=== PATIENT | female | born 1985 | race Two or more races ===

== ENCOUNTER 2024-05-08 13:02 | Emergency (ER) | payer MEDICAID, OTHER ==
[~2024-05-08] VITALS: Ht 154.9 cm; Wt 77.0 kg
[2024-05-08 14:53] VITALS: BP 123/81; PULSE 110; RESP 19; TEMP 98; O2SAT 97
[2024-05-08 15:04] LABS: Urine Bacteria FEW /hpf (None Seen); Urine Blood 1+ /uL (Negative); Urine Clarity Clear (Clear); Urine Color Colorless (Yellow); Urine Protein, UAD Negative (Negative); Urine Specific Gravity 1.005 (1.001-1.035); Urine Urobilinogen Normal (Negative); Urine WBC 15 /hpf (0 - 5); Urine pH 5.5 (5.0-9.0)
[2024-05-08] MEDS ORDERED: BACDST PO (15:07)
[2024-05-08] MEDS ORDERED: PHEN-922 PO (15:07)
[2024-05-08] MEDS: PHENAZOPYRIDINE HCL 100 MG TAB PO ONE (15:09)
[2024-05-08] MEDS: cefTRIAXone SOD 1,000 MG VL IM ONE (15:09)
--- NOTE | 2024-05-08 15:15 | ED.PDOC ---
General HPI Comments A 38 YEAR OLD FEMALE PRESENTS TO THE ED WITH COMPLAINT OF UTI SYMPTOMS. PATIENT STATES HE HAS BEEN EXPERIENCING PAINFUL URINATION WITH A BURNING SENSATION AND BODY ACHES FOR THE PAST 2 DAYS. PATIENT DENIES HEMATURIA, FLANK PAIN, FEVER, CHILLS, SHORTNESS OF BREATH, CHEST PAIN, ABDOMINAL PAIN, NAUSEA, VOMITING, HEADACHE, OR OTHER COMPLAINTS. NO OTHER SYMPTOMS OR MODIFYING FACTORS AT THIS TIME. PATIENT IS ALERT, ORIENTED X 4, AND HAS STEADY GAIT. Chief Complaint: Urinary Time Seen by MD: 13:08 Primary Care Provider: CARLTON HARRINGTON Reviewed notes: Nurses Notes, Medications, Allergies Allergies: Coded Allergies: NO KNOWN ALLERGIES (Unverified , 05/08/24) Home Meds Active Scripts Phenazopyridine HCl (Phenazopyridine Hydrochlo) 200 Mg Tab, 200 MG PO TID, #6 TAB Prov:NADIA NICK 05/08/24 Sulfamethoxazole W/Trimethopri (Bactrim Ds Tablet) 1 Tab Tb, 1 TAB PO BID for 7 Days, #14 TAB Prov:NADIA NICK 05/08/24 Information Source: Patient Mode of Arrival: Ambulatory Severity: Moderate Inability to void: None Timing: Days Duration: Since onset, Days Prehospital treatment: None Onset: Spontaneous Symptoms: Dysuria History of: UTI Location: None Modifying factors: None associated signs and symptoms: Dysuria, Frequency, Urgency Past Medical History PAST MEDICAL HISTORY: Denies Surgical History: Denies all surgeries PANAMA HAT BLOCKER History: No Pertinent PANAMA HAT BLOCKER History Family History Family History: Reviewed,noncontributory to illness Social History Smoker: Non-Smoker Alcohol: Denies ETOH Use Drugs: Denies Drug Use Lives In: Home Constitutional: denies: chills, diaphoresis, fatigue, fever, malaise, sweats, weakness, others EENTM: denies: blurred vision, double vision, ear bleeding, ear discharge, ear drainage, ear pain, ear ringing, eye pain, eye redness, hearing loss, mouth pain, mouth swelling, nasal discharge, nose bleeding, nose congestion, nose pain, photophobia, tearing, throat pain, throat swelling, voice changes, others Respiratory: denies: cough, hemoptysis, orthopnea, SOB at rest, shortness of breath, SOB with excertion, stridor, wheezing, others Cardiovascular: denies: chest pain, dizzy spells, diaphoresis, Dyspnea on exertion, edema, irregular heart beat, left arm pain, lightheadedness, palpitations, PND, syncope, others Gastrointestinal: denies: abdomen distended, abdominal pain, blood streaked bowels, constipated, diarrhea, dysphagia, difficulty swallowing, hematemesis, melena, nausea, poor appetite, poor fluid intake, rectal bleeding, rectal pain, vomiting, others Genitourinary: reports: burning, dysuria, frequency; denies: abnormal vagina bleeding, dyspareunia, flank pain, hematuria, incontinence, pain, , vagina discharge, urgency, others Neurological: denies: dizziness, fainting, headache, left sided numbness, left sided weakness, numbness, paresthesia, pre-existing deficit, right sided numbness, right sided weakness, seizure, speech problems, tingling, tremors, weakness, others Musculoskeletal: denies: back pain, gout, joint pain, joint swelling, muscle pain, muscle stiffness, neck pain, others Integumetry: denies: bruises, change in color, change in hair/nails, dryness, laceration, lesions, lumps, rash, wounds, others Allergic/Immunocompromised: denies: Difficulty Healing, Frequent Infections, Hives, Itching, others Hematologic/Lymphatic: denies: anemia, blood clots, easy bleeding, easy bruising, swollen glands, others Endocrine: denies: excessive hunger, excessive sweating, excessive thirst, excessive urination, flushing, intolerance to cold, intolerance to heat, unexplained weight gain, unexplained weight loss, others Psychiatric: denies: anxiety, bipolar disorder, depression, hopeless, panic disorder, schizophrenia, sleepless, suicidal, others All Other Systems: Reviewed and Negative Physical Exam General Appearance: No Apparent Distress, Normal HEENT: Normal ENT Inspection, PERRL/EOMI, Pharynx Normal, TMs Normal Neck: Full Range of Motion, Non-Tender, Normal, Normal Inspection Respiratory: Chest Non-Tender, Lungs Clear, No Accessory Muscle Use, No Respiratory Distress, Normal Breath Sounds Cardiovascular: No Edema, No JVD, No Murmur, No Gallop, Normal Peripheral Pulses, Regular Rate/Rhythm Breast Exam: Deferred Gastrointestinal: No Organomegaly, Non Tender, No Pulsatile Mass, Normal Bowel Sounds, Soft, Suprapubic (PRESSURE. ) Genitalia: Deferred Pelvic: Normal External Exam, Tender Uterus Rectal: Deferred Extremities: No calf tenderness, Normal capillary refill, Normal inspection, Normal range of motion, Non-tender, No pedal edema Musculoskeletal : Apperance: Normal Neurologic: Alert, community advocate II-XII nml as Tested, No Motor Deficits, Normal Affect, Normal Mood, No Sensory Deficits Cerebellar Function: Normal Reflexes: Normal Skin: Dry, Normal Color, Warm Peripheral Pulses: 2+ carotid (R), 2+ carotid (L) Lymphatic: No Adenopathy Was a procedure done? Was a procedure done?: No Differential Diagnosis Kidney stone (Female): N/A Kidney stone (Male): N/A Penile/Scrotal: N/A Urinary Problem (Male): UTI, N/A Urinary Problem (Female): Pyelonephritis, Urolithiasis, UTI, Vaginitis X-Ray, Labs, Meds, VS Vital Signs Date Time Temp Pulse Resp B/P (MAP) Pulse Ox O2 Delivery O2 Flow Rate FiO2 05/08/24 14:53 98.0 110 19 123/81 (95) 97 98.0 05/08/24 14:53 110 19 97 Room Air 05/08/24 14:11 98.0 110 19 123/81 (95) 97 Lab Test 05/08/24 13:48 Range/Units Urine Color Colorless Yellow Urine Clarity Clear Clear Urine pH 5.5 5.0-9.0 Urine Specific [place] 1.005 1.001-1.035 Urine Protein Negative Negative Urine Ketones Negative Negative Urine Blood 1+ H Negative /uL Urine Nitrite Negative Negative Urine Bilirubin Negative Negative Urine Urobilinogen Normal Negative mg/dL Urine Leukocyte Esterase 2+ Negative /uL Urine RBC 2 0 - 4 /hpf Urine WBC 15 0 - 5 /hpf Urine Squamous Epithelial Cells Few <5 /hpf Urine Bacteria Few H None Seen /hpf Urine Glucose Normal Normal mg/dL Urine Test Negative Negative Current Medications Medications (Trade) Dose Ordered Sig/Brad Route Start Time Stop Time Status Last Admin Phenazopyridine HCl (Pyridium Tablet) 200 mg ONCE ONCE PO 05/08/24 15:15 05/08/24 15:16 DC 05/08/24 15:09 Ceftriaxone Sodium (Rocephin) 1,000 mg ONCE ONCE IM 05/08/24 15:15 05/08/24 15:16 DC 05/08/24 15:09 X-Ray, Labs, Meds, VS Comment EXTERNAL MEDICAL RECORDS REVIEWED: [NONE] INDEPENDENT HISTORIANS: [NONE] SOCIAL DETERMINANTS OF HEALTH: [NONE] LABS ORDERED: UA REVIEWED AND INTERPRETED RESULTS: LEUKO 2+, BLOOD 1+ IMAGING ORDERED: NONE TREATMENTS ORDERED: ROCEPHIN 1G IM, PYRIDIUM 200MG PO PROCEDURES PERFORMED: NONE CRITICAL CARE TIME: NONE I HAVE DISCUSSED THE PATIENT WITH THE ATTENDING PHYSICIAN DR. CARCAMO AND HE AGREES WITH THE PATIENT'S PLAN OF CARE AND DISPOSITION. BASED ON HISTORY OF PRESENT ILLNESS, AND PHYSICAL EXAM, PATIENT WILL BE DISCHARGED HOME. DISCUSSED PLAN FOR DISCHARGE HOME WITH RX [SEPTRA DS AND PYRIDIUM]. MEDICATION WARNINGS GIVEN. SHARED DECISION MAKING: PATIENT INSTRUCTED TO FOLLOW UP WITH PRIMARY CARE PROVIDER IN 1-2 DAYS FOR RE-EVALUATION OF SYMPTOMS. PATIENT VERBALIZES UNDERSTANDING TO RETURN TO ED FOR NEW OR WORSENING SYMPTOMS OR IF FOLLOW UP WITH PCP CANNOT BE OBTAINED. PATIENT FEELS COMFORTABLE GOING HOME AT THIS TIME. ALL QUESTIONS ADDRESSED AT TIME OF DISCHARGE. Time of 1ST Reevaluation: 15:24 Reevaluation 1ST: Improved Patient Education/Counseling: Diagnosis, Treatment, Need For Follow Up Family Education/Counseling: Diagnosis, Treatment, Need For Follow Up Medical Screening: No EMC Exist At This Time Departure 1 Departure Time of Disposition: 15:40 Impression: Primary Impression: Acute UTI (urinary tract infection) Disposition: 01 HOME / SELF CARE / HOMELESS Condition: Stable Additional Instructions: FOLLOW-UP WITH PCP IN 1 TO 2 DAYS. TAKE MEDICATIONS PRESCRIBED. RETURN TO ED FOR ANY NEW OR WORSENING SYMPTOMS. e-Prescriptions Phenazopyridine HCl (Phenazopyridine Hydrochlo) 200 Mg Tab 200 MG PO TID, #6 TAB Prov: NADIA NICK 05/08/24 Sulfamethoxazole W/Trimethopri (Bactrim Ds Tablet) 1 Tab Tb 1 TAB PO BID for 7 Days, #14 TAB Prov: NADIA NICK 05/08/24 Discharged With: Self Critical Care Note Critical Care Time?: No Stability Stability form required: No I personally scribed for NADIA NICK ([email or web address]) on 05/08/24 at 15:15. Electronically submitted by Cole Jessica ([email or web address]). NADIA NICK May 08, 2024 15:15
== END 2024-05-08 15:23 | disposition home or self-care (01) ==
LOC: ER 13:02 → EDBD 13:02 → ER 15:23
DX: N39.0 Urinary tract infection, site not specified (principal); Z32.02 Encounter for pregnancy test, result negative
CPT/HCPCS: 81001; 81025; 96372; 99283; J0696

== ENCOUNTER 2024-07-01 17:21 | Emergency (ER) | payer MEDICAID ==
[~2024-07-01] VITALS: Ht 154.9 cm; Wt 75.2 kg
[~2024-07-01 17:21] MED LIST: BACDST PO; PHEN-922 PO
[2024-07-01 17:45] VITALS: TEMP 98.2
[2024-07-01 17:46] VITALS: BP 122/78; PULSE 102; RESP 16; O2SAT 97
[2024-07-01] MEDS ORDERED: ACET500T58 PO (18:40)
[2024-07-01] MEDS ORDERED: AMOX875T4 PO (18:40)
[2024-07-01] MEDS ORDERED: CARB6.5S59 OT (18:40)
--- NOTE | 2024-07-01 18:41 | ED.PDOC ---
Eye-HPI HPI Comments 38-YEAR-OLD FEMALE PRESENTS TO ER WITH COMPLAINTS OF SORE THROAT X3 DAYS. PATIENT REPORTS SHE HAS BEEN EXPERIENCING SORE THROAT PAIN AND RIGHT-SIDED EARACHE PAIN X3 DAYS. SHE RATES HER CURRENT PAIN AN 8/10. REPORTS THAT SHE HAS BEEN TAKING IBUPROFEN FOR HER PAIN WITH SLIGHT RELIEF. NOTES SHE WAS ABLE TO SWALLOW LIQUIDS/SOLIDS BUT DOES HAVE PAIN TO THROAT UPON DOING SO. DENIES FEVER, BODY ACHES, CHILLS, SHORTNESS OF BREATH, COUGH OR ANY FURTHER SYMPT OMS/COMPLAINTS Chief Complaint: Sore Throat Time Seen by MD: 18:15 Primary Care Provider: CARLTON HARRINGTON Reviewed Notes: Nurses Notes, Medications, Allergies Allergies: Coded Allergies: NO KNOWN ALLERGIES (Unverified , 05/08/24) Home Meds Active Scripts Carbamide Peroxide (Ear Drops Earwax Removal) 6.5 % Rajani, 5 DROP OT BID for 5 Days, #1 BOTTLE 0 Refills Prov:ROSA M NG 07/01/24 Acetaminophen (Acetaminophen) 500 Mg Tab, 500 MG PO Q4HPRN, #30 TAB 0 Refills Prov:ROSA M NG 07/01/24 Amoxicillin & Pot Clavulanate (Amoxicillin/Potassium Cla) 875 Mg Tab, 1 TAB PO BID for 7 Days, #14 TAB 0 Refills Prov:ROSA M NG 07/01/24 Phenazopyridine HCl (Phenazopyridine Hydrochlo) 200 Mg Tab, 200 MG PO TID, #6 TAB Prov:NADIA NICK 05/08/24 Sulfamethoxazole W/Trimethopri (Bactrim Ds Tablet) 1 Tab Tb, 1 TAB PO BID for 7 Days, #14 TAB Prov:NADIA NICK 05/08/24 Mode of Arrival: Ambulatory Past Medical History PAST MEDICAL HISTORY: Denies Surgical History: Cholecystectomy ASSISTANT STATISTICIAN History: No Pertinent ASSISTANT STATISTICIAN History Family History Family History: Unknown Social History Smoker: Non-Smoker Alcohol: Denies ETOH Use Drugs: Denies Drug Use Lives In: Home Constitutional: denies: chills, diaphoresis, fatigue, fever, malaise, sweats, weakness, others EENTM: reports: others ( STATED IN HPI) Respiratory: denies: cough, hemoptysis, orthopnea, SOB at rest, shortness of breath, SOB with excertion, stridor, wheezing, others Cardiovascular: denies: chest pain, dizzy spells, diaphoresis, Dyspnea on exertion, edema, irregular heart beat, left arm pain, lightheadedness, palpitations, PND, syncope, others Gastrointestinal: denies: abdomen distended, abdominal pain, blood streaked bowels, constipated, diarrhea, dysphagia, difficulty swallowing, hematemesis, melena, nausea, poor appetite, poor fluid intake, rectal bleeding, rectal pain, vomiting, others Genitourinary: denies: abnormal vagina bleeding, burning, dyspareunia, dysuria, flank pain, frequency, hematuria, incontinence, pain, , vagina discharge, urgency, others Neurological: denies: dizziness, fainting, headache, left sided numbness, left sided weakness, numbness, paresthesia, pre-existing deficit, right sided numbness, right sided weakness, seizure, speech problems, tingling, tremors, weakness, others Musculoskeletal: denies: back pain, gout, joint pain, joint swelling, muscle pain, muscle stiffness, neck pain, others Integumetry: denies: bruises, change in color, change in hair/nails, dryness, laceration, lesions, lumps, rash, wounds, others Allergic/Immunocompromised: denies: Difficulty Healing, Frequent Infections, Hives, Itching, others Hematologic/Lymphatic: denies: anemia, blood clots, easy bleeding, easy bruising, swollen glands, others Endocrine: denies: excessive hunger, excessive sweating, excessive thirst, excessive urination, flushing, intolerance to cold, intolerance to heat, unexplained weight gain, unexplained weight loss, others Psychiatric: denies: anxiety, bipolar disorder, depression, hopeless, panic disorder, schizophrenia, sleepless, suicidal, others Physical Exam General Appearance: No Apparent Distress, Obese HEENT: PERRL/EOMI, Pharyngeal Erythema (MILD TONSILLAR SWELLING/ERYTHEMA NOTED BILATERALLY WITHOUT EXUDATES. UVULA-NORMAL), Other (CERUMEN IMPACTION NOTED TO RIGHT MIDDLE EAR CANAL, UNABLE TO VISUALIZE RIGHT TM DUE TO CERUMEN IMPACTION, NO VISIBLE ERYTHEMA/EAR DRAINAGE/SKIN CHANGES APPRECIATED. EAR EXAM ON LEFT- UNREMARKABLE) Neck: Full Range of Motion, Other (BILATERAL CERVICAL LYMPHADENOPATHY) Respiratory: Chest Non-Tender, Lungs Clear, No Accessory Muscle Use, No Resp iratory Distress, Normal Breath Sounds Cardiovascular: No Murmur, No Gallop, Regular Rate/Rhythm Breast Exam: Deferred Gastrointestinal: NOT DONE Genitalia: Deferred Pelvic: Deferred Rectal: Deferred Extremities: Normal capillary refill, Normal range of motion Neurologic: Alert, yoker II-XII nml as Tested, No Motor Deficits, Normal Affect, Normal Mood, No Sensory Deficits Cerebellar Function: Normal Reflexes: Normal Skin: Dry, Normal Color, Warm Peripheral Pulses: 2+ carotid (R), 2+ carotid (L), 2+ Radial (R), 2+ Radial (L), 2+ Brachial (R), 2+ Brachial (L) Lymphatic: Other (BILATERAL CERVICAL LYMPHADENOPATHY) Was a procedure done? Was a procedure done?: No Sedation Sedation?: No EENT DIFF Eye: N/A Sore Throat: Epiglottitis, Mononeucleosis, Peritonsillar Abscess, URI X-Ray, Labs, Meds, VS Vital Signs Date Time Temp Pulse Resp B/P (MAP) Pulse Ox O2 Delivery O2 Flow Rate FiO2 07/01/24 17:46 98.2 102 16 122/78 (93) 97 07/01/24 17:45 98.2 102 16 122/78 (93) 97 98.2 07/01/24 17:45 Room Air 0 ROCEPHIN 1 G IM ORDERED SOLU-MEDROL 125 MG IM ORDERED PATIENT TOLERATING P.O. INTAKE WELL AND IN NO DISTRESS DURING ER VISIT/PRIOR TO DISCHARGE ADVISED TO DRINK PLENTY OF FLUIDS ADVISED TO FOLLOW UP WITH PCP IN 1-2 DAYS PATIENT VERBALIZED UNDERSTANDING AND AGREEABLE WITH CURRENT PLAN OF CARE ADVISED TO RETURN TO ER IMMEDIATELY IF SYMPTOMS WORSEN Time of 1ST Reevaluation: 18:12 Reevaluation 1ST: N/A Patient Education/Counseling: Diagnosis, Treatment, Prognosis, Need For Follow Up Family Education/Counseling: No Family Present Departure 1 Departure Time of Disposition: 18:32 Impression: Primary Impression: Acute tonsillitis Qualified Codes: J03.90 - Acute tonsillitis, unspecified Additional Impression: Impacted cerumen of right ear Disposition: HOME / SELF CARE / HOMELESS Condition: Stable e-Prescriptions Carbamide Peroxide (Ear Drops Earwax Removal) 6.5 % Rajani 5 DROP OT BID for 5 Days, #1 BOTTLE 0 Refills Prov: ROSA M NG 07/01/24 Acetaminophen (Acetaminophen) 500 Mg Tab 500 MG PO Q4HPRN, #30 TAB 0 Refills Prov: ROSA M NG 07/01/24 Amoxicillin & Pot Clavulanate (Amoxicillin/Potassium Cla) 875 Mg Tab 1 TAB PO BID for 7 Days, #14 TAB 0 Refills Prov: ROSA M NG 07/01/24 Discharged With: Self Critical Care Note Critical Care Time?: No Stability Stability form required: No Heart Score Heart Score: Heart Score Response (Comments) Value History N/A 0 EKG N/A 0 Age N/A 0 Risk Factors N/A 0 Troponin N/A 0 Total 0 ROSA M NG Jul 01, 2024 18:41
[2024-07-01] MEDS: cefTRIAXone SOD 1,000 MG VL IM ONE (18:50)
[2024-07-01] MEDS: methylPREDNISolone SOD SUCC 125 MG/2 ML VL IM ONE (18:50)
== END 2024-07-01 19:10 | disposition home or self-care (01) ==
LOC: ER 17:21
DX: J03.90 Acute tonsillitis, unspecified (principal); H61.21 Impacted cerumen, right ear; Z90.49 Acquired absence of other specified parts of digestive tract; Z79.899 Other long term (current) drug therapy
CPT/HCPCS: 96372; 99284; J0696; J2919